=== PATIENT | female | born 1945 | race Asian ===

== ENCOUNTER 2017-01-24 09:50 | Outpatient (CLI) | payer OTHER ==
[~2017-01-24 09:50] MED LIST: FERROUS SULF325 M1 OR; IBUP800T30 PO; LANTUS100 MG/ML SC; LISI20TA11 PO; MONT10TA PO; NEXIUM40 M1 PO; NOVOLOG100 MG/ML SC; PEN V K PO
== END 2017-01-24 11:00 | disposition home or self-care (01) ==
LOC: US 09:50
DX: R09.89 Other specified symptoms and signs involving the circulatory and respiratory systems (principal); I77.89 Other specified disorders of arteries and arterioles